=== PATIENT | female | born 1975 | race Two or more races ===

== ENCOUNTER 2021-06-27 06:22 | Day surgery (SDC) | payer OTHER ==
[~2021-06-27 06:22] MED LIST: SYNTHROID125 MCG PO
== END 2021-06-27 14:10 | disposition home or self-care (01) ==
LOC: CIR.AMB 06:22
PROVIDERS: ATTEND Colon & Rectal Surgery
DX: K60.5 Anorectal fistula (principal); Z20.822 Contact with and (suspected) exposure to COVID-19